=== PATIENT | female | born 1955 | race Asian ===

== ENCOUNTER → 2020-08-24 | Outpatient (CLI) | payer MEDICAID ==
[~2020-08-24] MED LIST: ASPI-1497 PO; ATOR40TA70 PO; CLOP-31 PO; INSU100I24 SQ; METF-416 PO; METO-539 PO
== END | disposition home or self-care (01) ==
LOC: LAB 05:48 → OR 07:19
PROVIDERS: ATTEND Surgery
DX: Z01.812 Encounter for preprocedural laboratory examination (principal); Z20.822 Contact with and (suspected) exposure to COVID-19
CPT/HCPCS: 87426